=== PATIENT | female | born 1960 | race Hispanic/Latino ===

== ENCOUNTER 2024-11-21 12:17 | Outpatient (CLI) | payer MEDICARE | END 2024-11-21 12:18 | disposition home or self-care (01) | LOC: BICMAMMO 12:17 | PROVIDERS: ATTEND Family Medicine | DX: Z12.31 Encounter for screening mammogram for malignant neoplasm of breast (principal); Z13.820 Encounter for screening for osteoporosis; Z80.3 Family history of malignant neoplasm of breast | CPT/HCPCS: 77063; 77067; 77080 ==